=== PATIENT | female | born 1985 | race Caucasian/White ===

== ENCOUNTER 2018-04-07 18:15 | Emergency (ER) | payer SELFPAY ==
[~2018-04-07] VITALS: Ht 157.5 cm; Wt 59.6 kg
[~2018-04-07 18:15] MED LIST: BIRTH CONTROL
[2018-04-07 18:42] VITALS: BP 139/74; PULSE 73; RESP 16; TEMP 99.3; O2SAT 99
[2018-04-07 19:04] LABS: BILIRUBIN, URINE NEG (NEG); BLOOD, URINE LARGE (NEG); GLUCOSE,URINE 100 mg/dL (NEG); KETONE, URINE NEG (NEG); NITRITE,URINE POS (NEG); URINE LEUKOCYTE ESTERASE LARGE (NEG)
[2018-04-07 19:06] LABS: URINE COLOR ORANGE (YELLW/STRAW)
[2018-04-07 19:08] LABS: BACTERIA, URINE FEW /hpf; WBC, URINE INNUM /hpf (0-5)
[2018-04-07] MEDS ORDERED: CIPR-9 PO (20:29)
[2018-04-07] MEDS ORDERED: CIPROFLOXACIN 500 MG TAB PO ONE (20:30)
--- NOTE | 2018-04-07 20:30 | PD ---
HPI Chief Complaint: Complaint Time Seen by Provider: 19:37 Travel History International Travel<30 days: No Contact w/Intl Traveler<30days: No Traveled to known affect area: No History of Present Illness HPI This is a 33-year-old female here with dysuria, urgency, frequency for 10 days. Denies fever chills. No flank or back pain. No nausea or vomiting. No vaginal discharge. Symptom severity is moderate. She has been taking over-the- counter Azo and cranberry supplements with minimal relief. She believes she has a UTI [facility] Past Medical History Diminished Hearing: No Medical other: Yes (menstrual problems) Influenza Vaccination: No ?: Not Past Surgical History Surgical History: No Previous Surgery Social History Alcohol Use: Yes (occ) Tobacco Use: No Substance Use: Yes (pot) Allergies-Medications (Allergen,Severity, Reaction): Coded Allergies: No Known Allergies (Verified Adverse Reaction, Unknown, 04/07/18) Reported Meds & Prescriptions Reported Meds & Active Scripts Active Reported [ Control] Review of Systems Except as stated in HPI: all other systems reviewed are Neg General / Constitutional: No: Fever Eyes: No: Visual changes HENT: No: Headaches Cardiovascular: No: Chest Pain or Discomfort Respiratory: No: Shortness of Breath Gastrointestinal: No: Abdominal Pain Genitourinary: No: Dysuria Physical Exam Narrative GENERAL: Alert and well-appearing 33-year-old female SKIN: Warm and dry. HEAD: Normocephalic. EYES: No injection or drainage. NECK: Supple CARDIOVASCULAR: Regular rate and rhythm RESPIRATORY: Breath sounds equal bilaterally. No accessory muscle use. GASTROINTESTINAL: Abdomen soft, non-tender, nondistended. MUSCULOSKELETAL: No cyanosis, or edema. BACK: No CVA tenderness. Data Data Last Documented VS Vital Signs Date Time Temp Pulse Resp B/P (MAP) Pulse Ox O2 Delivery O2 Flow Rate FiO2 04/07/18 18:42 99.3 73 16 139/74 (95) 99 Orders Orders Urinalysis - C+S If Indicated (04/07/18 18:46) Ed Urine Pregnancytest Poc (04/07/18 18:46) Urine Culture (04/07/18 18:45) Labs Laboratory Tests Test 04/07/18 18:45 Urine Color ORANGE Urine Turbidity CLOUDY Urine pH 5.0 Urine Specific [place] GREATER/EQUAL 1.030 Urine Protein 100 mg/dL Urine Glucose (UA) 100 mg/dL Urine Ketones NEG mg/dL Urine Occult Blood LARGE Urine Nitrite POS Urine Bilirubin NEG Urine Urobilinogen 2.0 MG/DL Urine Leukocyte Esterase LARGE Urine RBC 20-24 /hpf Urine WBC INNUM /hpf Urine Squamous Epithelial Cells 6-8 /hpf Urine Bacteria FEW /hpf Microscopic Urinalysis Comment CULTURE INDICATED MDM Medical Decision Making Medical Screen Exam Complete: Yes Emergency Medical Condition: Yes Differential Diagnosis UTI, pyelonephritis, vaginitis Narrative Course 33-year-old female here with dysuria for 10 days. Urine is negative. She is afebrile. Nontoxic-appearing. UA is positive for nitrates, large leukocyte Estrace,20-24 RBC, and numerous white blood cells, few bacteria. Culture is pending. Patient is uninsured and requesting free antibiotics from [facility]. She will be prescribed Cipro. Diagnosis Primary Impression: UTI (urinary tract infection) Qualified Codes: N30.01 - Acute cystitis with hematuria Referrals: Primary Care Physician Additional Instructions: Antibiotics as directed. Drink plenty fluid. Return to emergency department if you develop new or worsening symptoms as we discussed Scripts Ciprofloxacin (Cipro) 500 Mg Tab 500 MG PO BID for Infection for 3 Days, #6 TAB 0 Refills Prov: Taylor Rodriguez 04/07/18 Disposition: 01 DISCHARGE HOME Condition: Stable Taylor Rodriguez Apr 07, 2018 20:30
== END 2018-04-07 20:43 | disposition home or self-care (01) ==
LOC: PHED 18:15 → PHEFT 20:43
DX: N30.01 Acute cystitis with hematuria (principal)
CPT/HCPCS: 81001; 84703; 87077; 87086; 87186; 99283